=== PATIENT | male | born 1950 | race Caucasian/White ===

== ENCOUNTER 2020-01-22 10:27 | Inpatient (IN) ==
[2020-01-22] MEDS ORDERED: ALBUTEROL 2.5 MG/3 ML NEB RESP TX PRN (12:56)
[2020-01-22] MEDS ORDERED: ONDANSETRON 4 MG/2 ML VIAL IV PRN (12:56)
[2020-01-22 14:28] LABS: ABG Base Excess -2.8 MMOL/L (-2.5-2.5); ABG HCO3 21.9 MMOL/L (20-26); ABG Oxygen Saturation 92.4 % (95-100); ABG PCO2 32.9 MM HG (35-48); ABG PH 7.409 (7.35-7.45); ABG PO2 65.7 MM HG (80-95); ABG TCO2 17.8 MMOL/L (23-27)
[2020-01-22 15:13] LABS: Basophils % 0.3 % (0.0-0.8); Hematocrit 45.8 VOL% (42.0-52.0); Hemoglobin 15.5 GM/DL (14.0-18.0); Immature Granulocytes % 1.8 %; Immature Granulocytes Absolute 0.16 #; Lymphocytes # 1.9 10*3/uL (1.4-4.0); Lymphocytes % 20.4 % (21.2-54.2); Mean Corpuscular HGB Conc 33.8 GM/DL (32-36); Mean Corpuscular Volume 89.5 FL (87-102); Neutrophils % 74.5 % (38.7-73.9); Platelet Count 249 T/CUMM (130-400); Red Blood Count 5.12 MC/CUMM (3.8-5.5); White Blood Count 9.1 T/CUMM (4-12)
[2020-01-22 15:23] LABS: Albumin 2.5 G/DL (3.4-5.0); Bilirubin,Total 0.6 MG/DL (0.2-1.0); Calcium 8.3 MG/DL (8.5-10.1); Osmolality,Calculated 270.4 MOS/KG (273-304); Total Protein 6.9 G/DL (6.4-8.3)
[2020-01-22 15:27] LABS: Ferritin 1434.2 ng/ml (26-388)
[2020-01-22] MEDS: PANTOPRAZOLE 40 MG TABLET PO SCH (15:41)
[2020-01-22] MEDS: ENOXAPARIN 100 MG/ML SYRINGE SUBCUT SCH (15:41)
[2020-01-22] MEDS: ASCORBIC ACID 500 MG TABLET PO SCH (16:31)
[2020-01-22] MEDS: ZINC GLUCONATE 50 MG TABLET PO SCH (16:31)
[2020-01-22] MEDS: cefTRIAXone 1,000 MG in SYRINGE 1 EACH IV SCH (18:10)
[2020-01-22] MEDS: AZITHROMYCIN INJ 500 MG in SODIUM CHLORIDE 0.9% 250 ML IV SCH (18:15)
[2020-01-22] MEDS: SODIUM CHLORIDE 0.9% 1,000 ML IV SCH (19:00)
[2020-01-22] MEDS: ACETAMINOPHEN 325 MG TABLET PO PRN (20:36)
[2020-01-22] MEDS: rOPINIRole 1 MG TABLET PO SCH (20:36)
[2020-01-23] MEDS: ENOXAPARIN 100 MG/ML SYRINGE SUBCUT SCH ×2 (01:00→12:47)
[2020-01-23] MEDS ORDERED: LORazepam 2 MG/1 ML VIAL IV ONE (04:32)
[2020-01-23 06:13] LABS: Basophils % 0.2 % (0.0-0.8); Hematocrit 44.3 VOL% (42.0-52.0); Immature Granulocytes % 1.2 %; Immature Granulocytes Absolute 0.15 #; Lymphocytes # 2.3 10*3/uL (1.4-4.0); Lymphocytes % 18.1 % (21.2-54.2); Mean Corpuscular HGB Conc 33.9 GM/DL (32-36); Mean Corpuscular Volume 89.3 FL (87-102); Mean Platelet Volume 8.7 FL (9.6-12.0); Monocytes % 4.6 % (1.7-12.7); Neutrophils % 75.9 % (38.7-73.9); Platelet Count 297 T/CUMM (130-400); Red Blood Count 4.96 MC/CUMM (3.8-5.5); White Blood Count 12.5 T/CUMM (4-12)
[2020-01-23 06:37] LABS: Calcium 8.9 MG/DL (8.5-10.1); Osmolality,Calculated 279.1 MOS/KG (273-304)
[2020-01-23] MEDS ORDERED: SODIUM CHLORIDE 0.9% 1,000 ML IV PRN (07:20)
[2020-01-23] MEDS: PANTOPRAZOLE 40 MG TABLET PO SCH (07:59)
[2020-01-23] MEDS: rOPINIRole 1 MG TABLET PO SCH ×2 (07:59→21:36)
[2020-01-23] MEDS: ZINC GLUCONATE 50 MG TABLET PO SCH (07:59)
[2020-01-23] MEDS: ASCORBIC ACID 500 MG TABLET PO SCH (07:59)
[2020-01-23] MEDS ORDERED: MORPHINE 4 MG/1 ML VIAL IV PRN (08:08)
[2020-01-23] MEDS ORDERED: DIGOXIN 0.5 MG/2 ML AMP IV ONE ×2 (08:24→09:30)
[2020-01-23] MEDS: METOPROLOL TARTRATE 5 MG/5 ML VIAL IV PRN ×2 (08:44→14:43)
[2020-01-23] MEDS: DEXAMETHASONE 4 MG/1 ML VIAL IV SCH (09:21)
[2020-01-23] MEDS ORDERED: AMIODARONE INJ 150 MG in DEXTROSE 5% 100 ML IV ONE (10:26)
[2020-01-23] MEDS: AMIODARONE INJ 450 MG in DEXTROSE 5% 241 ML IV SCH (10:53)
[2020-01-23] MEDS ORDERED: LOPERAMIDE 1 MG/7.5 ML 30 ML BOTTLE PO PRN (11:09)
[2020-01-23] MEDS ORDERED: SODIUM CHLORIDE 0.9% 500 ML IV ONE ×2 (11:12→11:50)
[2020-01-23] MEDS ORDERED: SUCCINYLCHOLINE 200 MG/10 ML VIAL ONE (11:19)
[2020-01-23] MEDS ORDERED: ETOMIDATE 20 MG/10 ML VIAL IV ONE ×3 (11:19→11:23)
[2020-01-23] MEDS ORDERED: SUCCINYLCHOLINE 200 MG/10 ML VIAL IV ONE (11:38)
[2020-01-23] MEDS ORDERED: ROCURONIUM 500 MG in SODIUM CHLORIDE 0.9% 500 ML IV PRN ×2 (12:00→12:19)
[2020-01-23] MEDS: CISATRACURIUM IV PRN (12:36)
[2020-01-23] MEDS: SODIUM CHLORIDE 0.9% IV PRN (12:36)
[2020-01-23 12:53] LABS: ABG Base Excess -9.1 MMOL/L (-2.5-2.5); ABG HCO3 22.8 MMOL/L (20-26); ABG Oxygen Saturation 87.3 % (95-100); ABG PO2 76.1 MM HG (80-95); ABG TCO2 25.2 MMOL/L (23-27)
[2020-01-23 12:56] LABS: ABG PCO2 78.8 MM HG (35-48); ABG PH 7.079 (7.35-7.45)
[2020-01-23 13:20] LABS: ABG Base Excess -9.5 MMOL/L (-2.5-2.5); ABG Oxygen Saturation 94.5 % (95-100); ABG TCO2 20.7 MMOL/L (23-27)
[2020-01-23 13:21] LABS: ABG PH 7.109 (7.35-7.45)
[2020-01-23 13:22] LABS: ABG PCO2 72.8 MM HG (35-48)
[2020-01-23] MEDS ORDERED: SODIUM BICARBONATE 50 MEQ/50 ML VIAL IV ONE ×3 (14:02→21:30)
[2020-01-23] MEDS: NOREPINEPHRINE 8 MG in SODIUM CHLORIDE 0.9% 242 ML IV PRN ×2 (14:59→18:28)
[2020-01-23] MEDS: cefTRIAXone 1,000 MG in SYRINGE 1 EACH IV SCH (16:29)
[2020-01-23] MEDS ORDERED: REMDESIVIR 100 MG in SODIUM CHLORIDE 0.9% 230 ML IV SCH (17:00)
[2020-01-23 17:23] LABS: Amorphous Crystals,Urine Occasional /HPF (Few); Apearance,Urine CLOUDY (Clear); Bacteria,Urine Few /HPF (Few); Bilirubin,Urine Negative (Negative); Blood, Urine Small mg/dL (Negative); Glucose,Urine (UA) 50 mg/dL (Negative); Ketones,Urine Negative (Negative); Nitrite,Urine Negative (Negative); Protein,Urine 100 MG/DL; Squamous Epithelial Cell,Urine Occasional /HPF (0-10); Urine Color Amber (Yellow); Urine Specific Gravity 1.018 (1.001-1.035); Urine Urobilinogen < 2.0 EU/DL (0.2-1.0)
[2020-01-23] MEDS: AZITHROMYCIN INJ 500 MG in SODIUM CHLORIDE 0.9% 250 ML IV SCH (17:37)
[2020-01-23] MEDS: PHENYLEPHRINE DRIP 40 MG/250 ML PREMIX IV PRN (18:30)
[2020-01-23] MEDS ORDERED: PHENYLEPHRINE DRIP 40 MG/250 ML PREMIX IV ONE (18:34)
[2020-01-23] MEDS ORDERED: SODIUM BICARBONATE 50 MEQ/50 ML SYRINGE IV ONE (18:41)
[2020-01-23] MEDS ORDERED: EPINEPHrine 1 MG/10 ML SYRINGE ONE (18:41)
[2020-01-23] MEDS ORDERED: EPINEPHrine 1 MG/ML VIAL ONE (18:56)
[2020-01-23 19:17] LABS: ABG Base Excess -17.1 MMOL/L (-2.5-2.5); ABG Oxygen Saturation 98.7 % (95-100); ABG PCO2 62.6 MM HG (35-48)
[2020-01-23 19:19] LABS: Basophils % 0.1 % (0.0-0.8); Hematocrit 42.3 VOL% (42.0-52.0); Hemoglobin 13.4 GM/DL (14.0-18.0); Immature Granulocytes % 5.7 %; Immature Granulocytes Absolute 1.69 #; Lymphocytes # 10.3 10*3/uL (1.4-4.0); Lymphocytes % 35.1 % (21.2-54.2); Mean Corpuscular HGB Conc 31.7 GM/DL (32-36); Mean Corpuscular Volume 96.8 FL (87-102); Mean Platelet Volume 9.3 FL (9.6-12.0); Monocytes % 6.2 % (1.7-12.7); NRBC # 0.08 10*3/uL; Neutrophils % 52.9 % (38.7-73.9); Platelet Count 341 T/CUMM (130-400); Red Blood Count 4.37 MC/CUMM (3.8-5.5); Red Cell Distribution Width 13.5 % (9.3-17.3); White Blood Count 29.4 T/CUMM (4-12)
[2020-01-23 19:31] LABS: INR 1.3
[2020-01-23 19:43] LABS: Alanine Aminotransferase 767 U/L (16-61); Albumin 1.6 G/DL (3.4-5.0); Alkaline Phosphatase 116 U/L (45-117); Aspartate Amino Transferase 1354 U/L (0-37); Blood Urea Nitrogen 45 MG/DL (7-18); Estimated Glom Filtration Rate 33 ML/MIN; Glucose 125 MG/DL (74-106); Osmolality,Calculated 295.1 MOS/KG (273-304); Total Protein 4.8 G/DL (6.4-8.3)
[2020-01-23 19:56] LABS: Lymphocytes 39 % (20-55); Nucleated Red Blood Cells 1 (0-5); Segmented Neutrophils 58 % (50-85); Total Cells Counted 100
[2020-01-23] MEDS ORDERED: CALCIUM GLUCONATE 1,000 MG in SODIUM CHLORIDE 0.9% 100 ML IV ONE (19:57)
[2020-01-23 19:58] LABS: Platelet Estimate Adequate
[2020-01-23] MEDS ORDERED: DEXTROSE 50% 25 GM/50 ML VIAL IV ONE (19:58)
[2020-01-23] MEDS ORDERED: INSULIN REGULAR 100 UNIT/ML IV ONE (19:58)
[2020-01-23] MEDS ORDERED: SODIUM POLYSTYRENE SULFATE 15 GM/60 ML BOTTLE PO ONE (19:59)
[2020-01-23 22:59] LABS: ABG Base Excess -9.3 MMOL/L (-2.5-2.5); ABG Oxygen Saturation 91.1 % (95-100); ABG PO2 84.2 MM HG (80-95); ABG TCO2 21.3 MMOL/L (23-27)
[2020-01-23 23:01] LABS: ABG PCO2 74.8 MM HG (35-48); ABG PH 7.096 (7.35-7.45)
[2020-01-23 23:31] LABS: Albumin 1.7 G/DL (3.4-5.0); Bilirubin,Total 1.2 MG/DL (0.2-1.0); Calcium 7.2 MG/DL (8.5-10.1); Osmolality,Calculated 303.8 MOS/KG (273-304); Total Protein 5.1 G/DL (6.4-8.3)
[2020-01-24] MEDS: SODIUM BICARB INJ 150 MEQ in DEXTROSE 5% 850 ML IV SCH ×4 (00:21→22:31)
[2020-01-24] MEDS: ENOXAPARIN 100 MG/ML SYRINGE SUBCUT SCH (01:03)
[2020-01-24] MEDS: NOREPINEPHRINE 8 MG in SODIUM CHLORIDE 0.9% 242 ML IV PRN ×6 (02:42→21:30)
[2020-01-24] MEDS: ACETAMINOPHEN 325 MG TABLET PO PRN ×4 (04:25→20:37)
[2020-01-24 04:42] LABS: Basophils # 0.2 10*3/uL (0.0-0.2); Basophils % 0.4 % (0.0-0.8); Hematocrit 41.6 VOL% (42.0-52.0); Hemoglobin 13.4 GM/DL (14.0-18.0); Immature Granulocytes % 4.6 %; Immature Granulocytes Absolute 1.69 #; Lymphocytes # 3.8 10*3/uL (1.4-4.0); Lymphocytes % 10.4 % (21.2-54.2); Mean Corpuscular HGB Conc 32.2 GM/DL (32-36); Mean Corpuscular Volume 94.5 FL (87-102); Mean Platelet Volume 9.8 FL (9.6-12.0); Monocytes % 2.9 % (1.7-12.7); NRBC # 0.06 10*3/uL; Neutrophils % 81.7 % (38.7-73.9); Platelet Count 356 T/CUMM (130-400); Red Cell Distribution Width 13.5 % (9.3-17.3); White Blood Count 36.8 T/CUMM (4-12)
[2020-01-24 04:48] LABS: ABG Base Excess -7.9 MMOL/L (-2.5-2.5); ABG PO2 77.3 MM HG (80-95); ABG TCO2 22.2 MMOL/L (23-27)
[2020-01-24 04:52] LABS: ABG PCO2 76.9 MM HG (35-48); ABG PH 7.126 (7.35-7.45)
[2020-01-24 05:00] LABS: Calcium 6.8 MG/DL (8.5-10.1)
[2020-01-24] MEDS: SODIUM CHLORIDE 0.9% 1,000 ML IV SCH ×2 (05:11→18:09)
[2020-01-24 05:47] LABS: Anisocytosis 1+; Band Neutrophils 2 % (0-10); Hypochromasia Slight; Lymphocytes 17 % (20-55); Macrocytosis 1+; Nucleated Red Blood Cells 1 (0-5); Segmented Neutrophils 79 % (50-85); Total Cells Counted 100
[2020-01-24 05:48] LABS: Ovalocytes Few
[2020-01-24] MEDS ORDERED: SODIUM BICARBONATE 50 MEQ/50 ML VIAL IV ONE ×2 (06:05→18:24)
[2020-01-24] MEDS ORDERED: DEXTROSE 50% 25 GM/50 ML VIAL IV ONE (06:06)
[2020-01-24] MEDS ORDERED: INSULIN REGULAR 100 UNIT/ML IV ONE (06:06)
[2020-01-24] MEDS ORDERED: NOREPINEPHRINE 4 MG/4 ML VIAL IV ONE ×2 (06:26→14:05)
[2020-01-24] MEDS: AMIODARONE INJ 450 MG in DEXTROSE 5% 241 ML IV SCH ×2 (07:54→22:20)
[2020-01-24] MEDS: rOPINIRole 1 MG TABLET PO SCH ×2 (08:00→20:03)
[2020-01-24] MEDS: ASCORBIC ACID 500 MG TABLET PO SCH (08:00)
[2020-01-24] MEDS: PANTOPRAZOLE 40 MG TABLET PO SCH (08:00)
[2020-01-24] MEDS: ZINC GLUCONATE 50 MG TABLET PO SCH (08:00)
[2020-01-24] MEDS: DEXAMETHASONE 4 MG/1 ML VIAL IV SCH (08:02)
[2020-01-24] MEDS: PANTOPRAZOLE 40 MG VIAL IV SCH (08:31)
[2020-01-24] MEDS ORDERED: SODIUM POLYSTYRENE SULFATE 15 GM/60 ML BOTTLE PER TUBE PRN (09:19)
[2020-01-24] MEDS: MIDAZOLAM 100 MG in SODIUM CHLORIDE 0.9% 80 ML IV PRN (09:22)
[2020-01-24] MEDS: cefTRIAXone 1,000 MG in SYRINGE 1 EACH IV SCH (17:44)
[2020-01-24] MEDS: AZITHROMYCIN INJ 500 MG in SODIUM CHLORIDE 0.9% 250 ML IV SCH (17:46)
[2020-01-24] MEDS: PHENYLEPHRINE DRIP 40 MG/250 ML PREMIX IV PRN ×3 (18:19→22:31)
[2020-01-24] MEDS ORDERED: ALBUMIN 5% 12.5 GM/250 ML VIAL IV ONE (18:25)
[2020-01-24] MEDS ORDERED: ALBUMIN 25% 25 GM in PREMIX 1 EACH IV ONE ×2 (18:28→18:30)
[2020-01-24 18:34] LABS: ABG Base Excess 4.7 MMOL/L (-2.5-2.5); ABG Oxygen Saturation 72.5 % (95-100); ABG PH 7.223 (7.35-7.45); ABG PO2 50.2 MM HG (80-95); ABG TCO2 32.9 MMOL/L (23-27)
[2020-01-24 18:35] LABS: ABG PCO2 87.5 MM HG (35-48)
[2020-01-24] MEDS: SODIUM CHLORIDE 0.9% IV PRN (21:20)
[2020-01-24] MEDS: CISATRACURIUM IV PRN (21:20)
[2020-01-25] MEDS: PHENYLEPHRINE INJ 160 MG in SODIUM CHLORIDE 0.9% 234 ML IV PRN ×2 (00:31→08:04)
[2020-01-25] MEDS: NOREPINEPHRINE 16 MG in SODIUM CHLORIDE 0.9% 234 ML IV PRN ×3 (00:32→13:36)
[2020-01-25] MEDS ORDERED: ENOXAPARIN 100 MG/ML SYRINGE SUBCUT SCH (01:00)
[2020-01-25] MEDS: MIDAZOLAM 100 MG in SODIUM CHLORIDE 0.9% 80 ML IV PRN (01:01)
[2020-01-25 04:40] LABS: Basophils # 0.1 10*3/uL (0.0-0.2); Basophils % 0.3 % (0.0-0.8); Hematocrit 36.6 VOL% (42.0-52.0); Hemoglobin 11.6 GM/DL (14.0-18.0); Immature Granulocytes % 3.3 %; Immature Granulocytes Absolute 0.84 #; Lymphocytes # 1.7 10*3/uL (1.4-4.0); Lymphocytes % 6.8 % (21.2-54.2); Mean Corpuscular HGB Conc 31.7 GM/DL (32-36); Mean Corpuscular Volume 96.6 FL (87-102); Mean Platelet Volume 10.5 FL (9.6-12.0); Monocytes % 3.2 % (1.7-12.7); NRBC # 0.06 10*3/uL; Neutrophils % 86.4 % (38.7-73.9); Platelet Count 275 T/CUMM (130-400); Red Blood Count 3.79 MC/CUMM (3.8-5.5); White Blood Count 25.5 T/CUMM (4-12)
[2020-01-25 04:44] LABS: ABG Base Excess -5.3 MMOL/L (-2.5-2.5); ABG PO2 82.9 MM HG (80-95); ABG TCO2 23.2 MMOL/L (23-27)
[2020-01-25 05:00] LABS: ABG PCO2 69.2 MM HG (35-48); ABG PH 7.167 (7.35-7.45)
[2020-01-25 05:06] LABS: Band Neutrophils 1 % (0-10); Lymphocytes 9 % (20-55); Platelet Estimate Normal; Segmented Neutrophils 89 % (50-85); Total Cells Counted 100
[2020-01-25 05:37] LABS: Alanine Aminotransferase 5946 U/L (16-61); Alkaline Phosphatase 257 U/L (45-117); Aspartate Amino Transferase 14363 U/L (0-37)
[2020-01-25 05:38] LABS: Bilirubin,Total 2.04 MG/DL (0.2-1.0); Blood Urea Nitrogen 87 MG/DL (7-18); Estimated Glom Filtration Rate 10 ML/MIN; Glucose 167 MG/DL (74-106); Total Protein 4.8 G/DL (6.4-8.3)
[2020-01-25 05:39] LABS: Albumin 2.2 G/DL (3.4-5.0); Osmolality,Calculated 316.8 MOS/KG (273-304)
[2020-01-25 06:14] LABS: Calcium < 5.0 MG/DL (8.5-10.1)
[2020-01-25] MEDS: SODIUM BICARB INJ 150 MEQ in DEXTROSE 5% 850 ML IV SCH ×2 (08:12→17:55)
[2020-01-25] MEDS ORDERED: CALCIUM GLUCONATE 2,000 MG in SODIUM CHLORIDE 0.9% 100 ML IV ONE (08:30)
[2020-01-25] MEDS: ZINC GLUCONATE 50 MG TABLET PO SCH (08:31)
[2020-01-25] MEDS: ASCORBIC ACID 500 MG TABLET PO SCH (08:31)
[2020-01-25] MEDS: PANTOPRAZOLE 40 MG VIAL IV SCH (08:31)
[2020-01-25] MEDS: rOPINIRole 1 MG TABLET PO SCH (08:31)
[2020-01-25] MEDS: DEXAMETHASONE 4 MG/1 ML VIAL IV SCH (08:32)
[2020-01-25] MEDS: AMIODARONE INJ 450 MG in DEXTROSE 5% 241 ML IV SCH ×2 (09:39→13:21)
[2020-01-25] MEDS: SODIUM CHLORIDE 0.9% IV PRN (10:21)
[2020-01-25] MEDS: CISATRACURIUM IV PRN (10:21)
[2020-01-25 10:22] VITALS: BP 115/45
[2020-01-25] MEDS ORDERED: SODIUM CHLORIDE 0.9% 1,000 ML IV STA (11:22)
[2020-01-25] MEDS ORDERED: ALBUMIN 25% 12.5 GM in PREMIX 1 EACH IV ONE (11:26)
[2020-01-25] MEDS ORDERED: ALBUMIN 5% 12.5 GM in PREMIX 1 EACH IV ONE (12:00)
[2020-01-25] MEDS: methylPREDNISolone SOD SUC 125 MG/2 ML VIAL IV SCH ×2 (12:50→17:56)
[2020-01-25 12:59] LABS: Hepatitis B Core IgM Quant 0.22 Index; Hepatitis B Surface Ag Quant 0.13 Index; Hepatitis B Surface Ag Result Negative (Negative); Hepatitis C Virus Ab Quant 0.09 Index; Hepatitis C Virus Ab Result Negative (Negative)
[2020-01-25 14:12] LABS: ABG Base Excess -12.8 MMOL/L (-2.5-2.5); ABG HCO3 14.4 MMOL/L (20-26); ABG PO2 78.8 MM HG (80-95); ABG TCO2 19.1 MMOL/L (23-27)
[2020-01-25 14:14] LABS: ABG PCO2 74.9 MM HG (35-48); ABG PH 7.028 (7.35-7.45)
[2020-01-25] MEDS: cefTRIAXone 1,000 MG in SYRINGE 1 EACH IV SCH (17:55)
[2020-01-25] MEDS: AZITHROMYCIN INJ 500 MG in SODIUM CHLORIDE 0.9% 250 ML IV SCH (17:56)
[2020-01-25] MEDS: SODIUM CHLORIDE 0.9% 1,000 ML IV SCH (17:56)
== END 2020-01-25 15:10 | disposition expired | DRG 871 ==
LOC: SUATTDRO 12:29 → N.CC 12:29
PROVIDERS: ADMIT Internal Medicine; ATTEND Internal Medicine